=== PATIENT | female | born 2000 | race Two or more races ===

== ENCOUNTER 2021-02-12 08:31 | Emergency (ER) | payer OTHER ==
[~2021-02-12] VITALS: Ht 152.4 cm; Wt 41.7 kg
[2021-02-12] MEDS ORDERED: PRENATABS RX T1 EACH PO (09:10)
== END 2021-02-12 21:11 | disposition home or self-care (01) ==
LOC: ER 08:31
DX: O46.8X1 Other antepartum hemorrhage, first trimester (principal); Z3A.09 9 weeks gestation of pregnancy

== ENCOUNTER 2022-11-11 14:57 | Emergency (ER) | payer OTHER ==
[~2022-11-11] VITALS: Ht 152.4 cm; Wt 42.2 kg
[~2022-11-11 14:57] MED LIST: FOLIC ACID20 MG PO; PRENATABS RX T1 EACH PO; PRENATAL CAPLE1 EAC1 PO; PROMETRIUM200 MG PO
[2022-11-11] MEDS ORDERED: PRENA1 TRUE CO1 EACH PO (20:31)
== END 2022-11-11 20:38 | disposition home or self-care (01) ==
LOC: ER 14:57
DX: O20.8 Other hemorrhage in early pregnancy (principal); Z3A.01 Less than 8 weeks gestation of pregnancy

== ENCOUNTER 2022-12-20 07:01 | Inpatient (IN) | payer OTHER ==
[~2022-12-20 07:01] MED LIST changes: +PRENA1 TRUE CO1 EACH PO
== END 2022-12-21 11:09 | disposition home or self-care (01) | DRG 745 ==
LOC: CIR.AMB 07:01 → O/R 21:05 → SURH 21:15
PROVIDERS: ADMIT Obstetrics & Gynecology; ATTEND Obstetrics & Gynecology
PROC: 0UB70ZZ Excision of Bilateral Fallopian Tubes, Open Approach (ICD-10-PCS; principal; 2022-12-20 12:00)
DX: Z30.2 Encounter for sterilization (principal); Z20.822 Contact with and (suspected) exposure to COVID-19; Z64.1 Problems related to multiparity